=== PATIENT | female | born 1970 | race African-American/Black ===

== ENCOUNTER 2016-12-28 08:12 | Emergency (ER) | payer OTHER ==
[~2016-12-28] VITALS: Ht 139.7 cm; Wt 72.6 kg
[~2016-12-28 08:12] MED LIST: AFRIN PUMPMIST15 ML NASB; ALBUTEROL0.09 MG/A1 INH; AMOXIL 875 MG875 MG PO; BACTROBAN15 GM TOP; PREDNISONE 20MG20 MG PO; TESSALON PERLE100 MG PO
[2016-12-28] MEDS ORDERED: FERRALET 90 TA1 EACH PO (08:44)
--- NOTE | 2016-12-28 08:54 | RADIOLOGY REPORT ---
EXAMINATION: XR SHOULDER, RIGHT CLINICAL INFORMATION: Limited mobility after injury. COMPARISON: None TECHNIQUE: AP external rotation, Grashey, scapular Y, and axillary views of the right shoulder. FINDINGS: Bones have normal alignment. No arthritic deformity, fracture, subluxation or focal soft tissue swelling. The visualized right lung is normal. IMPRESSION: The right shoulder is radiographically normal.
--- NOTE | 2016-12-28 08:58 | ED UPPER/LOWER EXTREMITY COMPL ---
History of Present Illness General Chief Complaint: Shoulder Injury Stated Complaint: RIGHT SHOULDER PAIN Source: patient Exam Limitations: no limitations Vital Signs & Intake/Output Vital Signs & Intake/Output Vital Signs Date Time Temp Pulse Resp B/P B/P Pulse O2 O2 Flow FiO2 Mean Ox Delivery Rate 12/28 0926 98.0 88 20 140/80 98 Room Air 12/28 0820 97.7 89 16 162/93 97 Room Air Allergies Coded Allergies: latex (SOB, ITCHY, HIVES, DYSPNEA 01/29/16) morphine (ITCHING, SCRATCHING , BURNING 01/29/16) Reconcile Medications Cyclobenzaprine HCl 10 MG TABLET 1 TAB PO QPM PRN MUSCLE SPASM Iron Carb,Gl/FA/B12/C/Docusate (Ferralet 90 Tablet) 90 MG-1 MG-12 MCG-120 MG-50 MG TABLET 1 TAB PO DAILY SUPPLEMENT (Reported) Triage Note: PT STATES SHE IS HAVING RIGHT SHOULDER PAIN AFTER PICKING UP AN 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 PT REPORTS THIS WAS NOT AT WORK BUT NOW SHE IS UNABLE TO MOVE RIGHT ARM UP OR DOWN. PT NOTICED IT RIGHT AFTER SHE PICKED THE INCIDENT YESTERDAY BUT THOUGHT IT WOULD JUST GO AWAY. Triage Nurses Notes Reviewed? yes Onset: Gradual Duration: day(s): Timing: recent history Severity: moderate Pain/Injury Location: Right: Shoulder. Modifying Factors: Worsens With: movement. : No Patient currently breastfeeds: No HPI: 46-year-old female presents to emergency department complaining of right shoulder pain. Patient states that yesterday she was lifting an elderly gentleman off the ground and noticed pain shortly after "adrenaline wore off". She did not feel a pop click twist or pain while lifting the gentleman however shortly after she began experiencing pain. It is located everywhere in her shoulder, it has been constant since it began. He feels the same as it did when the pain began, she was able to sleep last night however on her left side. She tried taking Motrin last night with no relief of her pain. She is unable to move her right shoulder due to her pain. She denies skin changes or bruising, numbness, tingling. (KAYLA COPELAND PA-C) Past History Travel History Traveled to [place] past 21 day No Medical History Any Pertinent Medical History? see below for history Neurological: NONE EENT: NONE Cardiovascular: NONE Respiratory: COPD Gastrointestinal: NONE Hepatic: NONE Renal: NONE Musculoskeletal: NONE Psychiatric: NONE Endocrine: NONE Blood Disorders: NONE Cancer(s): NONE REHAB CONSULTANT/Reproductive: NONE Tetanus Vaccine: 01/29/16 Surgical History Surgical History: non-contributory Psychosocial History Who do you live with Significant Other Services at Home None What is your primary language Micronesian Tobacco Use: Current Daily Use Daily Tobacco Use Amount/Type: => 5 Cigarettes daily ETOH Use: occasional use Illicit Drug Use: denies illicit drug use Family History Hx Contributory? No (KAYLA COPELAND PA-C) Review of Systems Review of Systems Constitutional: Reports: no symptoms. EENTM: Reports: no symptoms. Respiratory: Reports: no symptoms. Cardiovascular: Reports: no symptoms. Gastrointestinal/Abdominal: Reports: no symptoms. Genitourinary: Reports: no symptoms. Musculoskeletal: Reports: see HPI. Skin: Reports: no symptoms. Neurological/Psychological: Reports: no symptoms. Hematologic/Endocrine: Reports: no symptoms. Immunological: Reports: no symptoms. All Other Systems: Reviewed and Negative (KAYLA COPELAND PA-C) Physical Exam Physical Exam General Appearance: well developed/nourished, no apparent distress, alert, awake Head: atraumatic, normal appearance Eyes: Bilateral: normal appearance, EOMI. Ears, Nose, Throat: hearing grossly normal Neck: normal inspection, supple, full range of motion Cardiovascular/Respiratory: no respiratory distress Peripheral Pulses: 2+ radial (R), 2+ radial (L) Shoulder Left: normal range of motion, normal inspection Shoulder Right: anterior swelling, tenderness anteriorly, limited ROM due to pain Hand Right: normal inspection, normal range of motion Neurologic/Tendon: normal sensation, AO x 3 Skin: intact, normal color (KAYLA COPELAND PA-C) Progress Differential Diagnosis: cellulitis, contusion, dislocation, fracture, septic arthritis, sprain, tendon injury Plan of Care: Current Medications Sig/Moi Start time Last Medication Dose Stop Time Status Admin Ibuprofen 800 MG ONCE ONE 12/28 0900 UNVr 12/28 (Motrin) 12/28 0901 0911 X-ray reveals no acute fracture or dislocation. The patient was discussed with Dr. Alvarez. Radiological findings were reviewed with the patient. She was given an orthopedic follow-up for next week if she expenses continued pain, she will call to make an appointment. She was instructed on taking Motrin as prescribed as needed for her pain and Flexeril at night for muscle spasm. Educated that this pain may get worse tomorrow with increased soft tissue swelling. She was instructed on RICE therapy. The patient is in agreement with the plan of care. She is well-appearing. She will return with any worsening symptoms or concerns. (KAYLA COPELAND PA-C) Diagnostic Imaging: Viewed by Me: Radiology Read. Discussed w/RAD: Radiology Read. Radiology Impression: PATIENT: WANDY PATEL PRESENT AGE: 46 PATIENT ACCOUNT NO: [id number] : 71 LOCATION: [facility] ORDERING PHYSICIAN: KAYLA COPELAND PA-C SERVICE DATE: 12/28/16 EXAM TYPE: RAD - XRY- SHOULDER COMPLETE-RIGHT EXAMINATION: XR SHOULDER, RIGHT CLINICAL INFORMATION: Limited mobility after injury. COMPARISON: None TECHNIQUE: AP external rotation, Grashey, scapular Y, and axillary views of the right shoulder. FINDINGS: Bones have normal alignment. No arthritic deformity, fracture, subluxation or focal soft tissue swelling. The visualized right lung is normal. IMPRESSION: The right shoulder is radiographically normal. 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 < Electronically signed in Other Vendor System> SIGNED BY: CANDI TANNER MD 12/28/16 0854 (KAYLA COPELAND PA-C) Departure Departure Disposition: HOME OR SELF CARE Condition: Stable Clinical Impression Primary Impression: Shoulder pain, right Secondary Impressions: Muscle strain of right shoulder Referrals: GARY SAHU,KAL CLINTON MD,MORELIA Turner (PCP/Family) Additional Instructions: Take Motrin as prescribed as needed for pain and swelling. Take Flexeril for muscle spasm, do not drive or operate machinery while on this medication as it may cause drowsiness. Follow-up with orthopedic referral given to you today, call to make an appointment for this week. Do not keep shoulder immobilized as this can make condition worse. Apply ice daily. Return with worsening symptoms or concerns. Departure Forms: Customer Survey General Discharge Information Prescriptions: Current Visit Scripts Cyclobenzaprine HCl 1 TAB PO QPM PRN MUSCLE SPASM #10 TAB (DINORAH MOREL,KAYLA) PA/YARD COUPLER Co-Sign Statement Statement: ED Attending supervision documentation- [] I saw and evaluated the patient. I have also reviewed all the pertinent lab results and diagnostic results. I agree with the findings and the plan of care as documented in the PA's/YARD COUPLER's documentation. [X] I have reviewed the ED Record and agree with the PA's/YARD COUPLER's documentation. [] Additions or exceptions (if any) to the PAs/YARD COUPLER's note and plan are summarized below: [] (DANAY SAHU,JAYNE Dior)
[2016-12-28] MEDS ORDERED: CYCLOBENZAPRINE10 M1 PO (09:21)
[2016-12-28 09:26] VITALS: BP 140/80
== END 2016-12-28 09:26 ==
LOC: ERH 08:12
DX: S46.911A Strain of unspecified muscle, fascia and tendon at shoulder and upper arm level, right arm, initial encounter (principal); X58.XXXA Exposure to other specified factors, initial encounter; Y92.9 Unspecified place or not applicable; Y93.9 Activity, unspecified
CPT/HCPCS: 73030-RT

== ENCOUNTER 2017-10-26 14:31 | Emergency (ER) | payer OTHER ==
[~2017-10-26] VITALS: Ht 139.7 cm; Wt 74.4 kg
[~2017-10-26 14:31] MED LIST changes: +ALBUTEROL2.5 MG/3 M INH/SOL; +CYCLOBENZAPRINE10 M1 PO; +FERRALET 90 TA1 EACH PO; +PREDNISONE20 M1 PO; +ZITHROMAX250 M2 PO
--- NOTE | 2017-10-26 15:26 | ED SKIN/ALLERGY COMPLAINT ---
History of Present Illness General Chief Complaint: Allergy Symptoms Stated Complaint: PER PT ALLERGIC REACTION TO NEW MEDS,+V,ITCHY,DIZZ Source: patient, old records Exam Limitations: no limitations Vital Signs & Intake/Output Vital Signs & Intake/Output Vital Signs Date Time Temp Pulse Resp B/P B/P Pulse O2 O2 Flow FiO2 Mean Ox Delivery Rate 10/26 1504 Room Air 10/26 1436 98.6 112 18 113/71 98 Room Air Allergies Coded Allergies: latex (SOB, ITCHY, HIVES, DYSPNEA 01/29/16) morphine (ITCHING, SCRATCHING , BURNING 01/29/16) Reconcile Medications Albuterol Sulfate 2.5 MG/3 ML (0.083 %) VIAL.NEB 1 Vial INH/JEFFREY Q4P PRN DYSPNEA Azithromycin (Zithromax) 250 MG TABLET 1 DP PO AD PNEUMONIA 2 the first day followed by 1 for days 2-5 Prednisone 20 MG TABLET 1 TAB PO BID BRONCHITIS Triage Note: 47 YO FEMALE TO TRIAGE, STATES SHE [facility] AND DX WITH SINUSITIS, STATES JUST STARTED TAKING ALL THE MEDICATIONS AND NOW IS C/O FEELING HOT, ICHINESDS ALL OVER, NOTED WITH SWELLING TO FACE. DENIES SOB. RA SATS 98%, PT ABLE TO SPEAK FULL, CLEAR SENTANCES. PT TOOK TESSALON PEARLES, AUGMENTIN, PREDNISONE, BROMFED DM. Triage Nurses Notes Reviewed? yes Onset: Just prior to arrival Duration: minute(s):, constant, continues in ED Timing: recent history Severity: moderate, severe Location: generalized Possible Factors: medications Modifying Factors: Improves With: scratching. Associated Symptoms: change in skin texture, flushing, rash LMP (ages 10-50): unknown : No Patient currently breastfeeds: No HPI: Patient was prescribed Augmentin benzonatate flonase and cough syrup for bronchitis. 30 minutes after taking medications she developed generalized itching and rash. She denies fever chills nausea vomiting diarrhea abdominal pain chest pain shortness of breath headache dysuria rash bleeding. Past History Travel History Traveled to [place] past 21 day No Medical History Any Pertinent Medical History? 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 No Review of Systems Review of Systems Constitutional: Reports: no symptoms. EENTM: Reports: no symptoms. Respiratory: Reports: no symptoms. Cardiovascular: Reports: no symptoms. GI: Reports: no symptoms. Genitourinary: Reports: no symptoms. Musculoskeletal: Reports: no symptoms. Skin: Reports: see HPI, rash. Neurological/Psychological: Reports: no symptoms. Hematologic/Endocrine: Reports: no symptoms. Immunologic/Allergic: Reports: no symptoms. All Other Systems: Reviewed and Negative Physical Exam Physical Exam General Appearance: well developed/nourished, alert, awake, anxious, moderate distress, obese Head: atraumatic, normal appearance Eyes: Bilateral: normal appearance, PERRL, EOMI. Ears, Nose, Throat: normal pharynx, normal ENT inspection, hearing grossly normal Neck: normal inspection, supple, full range of motion, no midline tenderness Respiratory: normal breath sounds, chest non-tender, no respiratory distress, quiet respiration, lungs clear Cardiovascular: regular rate/rhythm, normal peripheral pulses, norml femoral pulses equa Peripheral Pulses: 4+ carotid (R), 4+ carotid (L) Gastrointestinal: normal bowel sounds, soft, non-tender, no organomegaly Back: normal inspection, normal range of motion, no vertebral tenderness Extremities: normal inspection, normal capillary refill, normal range of motion, no edema, no ligament instability Neurologic/Psych: no motor/sensory deficits, awake, alert, oriented x 3, normal gait, normal mood/affect, 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 Skin: intact, warm/dry, rash Skin Problem Location: generalized Skin Problem Character: urticarial Lymphatic: no anterior cervical konrad Progress Differential Diagnosis: allergic reaction, angioedema, contact dermatitis, drug reaction Plan of Care: Current Medications Sig/Moi Start time Last Medication Dose Stop Time Status Admin Sodium Chloride 1,000 ML BOLUS ONE 10/26 1500 AC 10/26 (Normal Saline 0.9%) 10/26 1559 1500 Departure Departure Time of Disposition: 1653 Disposition: HOME OR SELF CARE Condition: Stable Clinical Impression Primary Impression: Allergic reaction caused by a drug Secondary Impressions: Bronchitis, Urticaria Referrals: Jay Brayan SAHU (PCP/Family) Additional Instructions: Stop Amoxicillin / clavulanate Departure Forms: Customer Survey General Discharge Information Prescriptions: Current Visit Scripts Azithromycin (Zithromax) 1 DP PO AD #1 DP Famotidine (Pepcid) 1 TAB PO BID #10 TAB Diphenhydramine HCl (Benadryl Allergy) 1-2 TAB PO Q6P PRN allergy #30 TAB Ref 1
[2017-10-26] MEDS ORDERED: ZITHROMAX250 M2 PO (16:57)
[2017-10-26] MEDS ORDERED: BENADRYL ALLERG25 M2 PO (16:57)
[2017-10-26] MEDS ORDERED: PEPCID20 M1 PO (16:57)
[2017-10-26] MEDS ORDERED: PROAIR HFA8.5 GM INH (16:58)
[2017-10-26 17:10] VITALS: BP 128/64
== END 2017-10-26 17:11 ==
LOC: ERH 14:31
DX: T50.991A Poisoning by other drugs, medicaments and biological substances, accidental (unintentional), initial encounter (principal); J40 Bronchitis, not specified as acute or chronic; L50.0 Allergic urticaria
CPT/HCPCS: 96374; 96375; J1200; J2930

== ENCOUNTER 2018-03-04 06:05 | Emergency (ER) | payer OTHER ==
[~2018-03-04] VITALS: Ht 139.7 cm; Wt 70.3 kg
[~2018-03-04 06:05] MED LIST changes: +BENADRYL ALLERG25 M2 PO; +PEPCID20 M1 PO; +PROAIR HFA8.5 GM INH
--- NOTE | 2018-03-04 06:10 | ED UPPER/LOWER EXTREMITY COMPL ---
History of Present Illness General Chief Complaint: Skin Rash/ Abcess Stated Complaint: "CYST ON RT ANKLE" Source: patient Exam Limitations: no limitations Vital Signs & Intake/Output Vital Signs & Intake/Output Vital Signs Date Time Temp Pulse Resp B/P B/P Pulse O2 O2 Flow FiO2 Mean Ox Delivery Rate 03/04 615 98.1 91 18 154/79 98 Room Air 03/04 06 99 Room Air Allergies Coded Allergies: amoxicillin (HIVES PER PT 03/04/18) latex (SOB, ITCHY, HIVES, DYSPNEA 01/29/16) morphine (ITCHING, SCRATCHING , BURNING 01/29/16) Reconcile Medications Albuterol Sulfate 2.5 MG/3 ML (0.083 %) VIAL.NEB 1 Vial INH/JEFFREY Q4P PRN DYSPNEA Albuterol Sulfate (Proair Hfa) 90 MCG HFA.AER.AD 2 PUF INH Q4-6 PRN PRN bronchitis Azithromycin (Zithromax) 250 MG TABLET 1 DP PO AD PNEUMONIA 2 the first day followed by 1 for days 2-5 Azithromycin (Zithromax) 250 MG TABLET 1 DP PO AD bronchitis Cephalexin (Keflex) 500 MG CAPSULE 1 CAP PO 4 TIMES/DAY INFECTION Diphenhydramine HCl (Benadryl Allergy) 25 MG TABLET 1-2 TAB PO Q6P PRN allergy Famotidine (Pepcid) 20 MG TABLET 1 TAB PO BID urticaria Ibuprofen 800 MG TABLET 1 TAB PO TID PRN pain Prednisone 20 MG TABLET 1 TAB PO BID BRONCHITIS Sulfamethoxazole/Trimethoprim (Bactrim Ds Tablet) 800 MG-160 MG TABLET 1 TAB PO BID INFECION Triage Nurses Notes Reviewed? yes Onset: Gradual Duration: day(s): Timing: recent history Severity: mild Modifying Factors: Improves With: rest. Associated Symptoms: swelling, redness HPI: 48 yo woman presents with small area of swelling and redness along the surgical scar of her right lateral ankle. She has been on bactrim x 3 days, "but the swelling seems to be getting worse." She has no fever, chills, joint pain. She is otherwise well. Past History Travel History Traveled to [place] past 21 day No Medical History Any Pertinent Medical History? 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 No Review of Systems Review of Systems Constitutional: Reports: no symptoms. EENTM: Reports: no symptoms. Respiratory: Reports: no symptoms. Cardiovascular: Reports: no symptoms. Gastrointestinal/Abdominal: Reports: no symptoms. Genitourinary: Reports: no symptoms. Musculoskeletal: Reports: no symptoms. Skin: Reports: no symptoms. Neurological/Psychological: Reports: no symptoms. Hematologic/Endocrine: Reports: no symptoms. Immunological: Reports: no symptoms. All Other Systems: Reviewed and Negative Physical Exam Physical Exam General Appearance: well developed/nourished, mild distress Head: atraumatic Eyes: Bilateral: normal appearance. Foot Right: 2cm area of superficial swelling, tenderness, erythema , c/w abscess , no lymphangitic streaking. Progress Differential Diagnosis: abscess vs cellulitis vs other. Plan of Care: abscess drained... excellent result... i doubt deeper joint involvment... pt to follow up with ortho and pmd. Departure Departure Disposition: HOME OR SELF CARE Condition: Stable Clinical Impression Primary Impression: Abscess Referrals: Jay Brayan SAHU (PCP/Family) Departure Forms: Customer Survey General Discharge Information Prescriptions: Current Visit Scripts Sulfamethoxazole/Trimethoprim (Bactrim Ds Tablet) 1 TAB PO BID #20 TAB Cephalexin (Keflex) 1 CAP PO 4 TIMES/DAY #40 CAP Ibuprofen 1 TAB PO TID PRN pain #30 TAB Procedures Incision and Drainage Site: right lateral ankle Blade Size: 11 I & D Procedure: Yes: betadine prep, sterile drapes applied, sterile dressing applied. No: wick placed. Progress: 3cc of pus drained. excellent hemostasis. pt to follow up in 1 day in ED and w/ orthopedics.
[2018-03-04 06:15] VITALS: BP 154/79
[2018-03-04] MEDS ORDERED: IBUPROFEN800 M1 PO (06:36)
[2018-03-04] MEDS ORDERED: BACTRIM DS TAB1 EACH PO (06:36)
[2018-03-04] MEDS ORDERED: KEFLEX500 M1 PO (06:36)
== END 2018-03-04 06:46 ==
LOC: ERH 06:05
DX: L02.611 Cutaneous abscess of right foot (principal)